=== PATIENT | female | born 1965 | race Caucasian/White ===

== ENCOUNTER 2018-07-15 18:55 | Emergency (ER) | payer BC ==
--- NOTE | 2018-07-15 20:09 | RAD ---
PA AND LATERAL CHEST: HISTORY: Cough. Wheezing. FINDINGS: Heart size and mediastinum are within normal limits. Lungs are clear of infiltrates. There are some arthritic changes of the spine. IMPRESSION: No active intrathoracic disease. POS: [facility]
== END 2018-07-15 20:49 | disposition home or self-care (01) ==
LOC: SCSER 18:55
DX: J45.909 Unspecified asthma, uncomplicated (principal); Z71.6 Tobacco abuse counseling; F32.9 Major depressive disorder, single episode, unspecified; F17.210 Nicotine dependence, cigarettes, uncomplicated; Z79.899 Other long term (current) drug therapy
CPT/HCPCS: 71046; 94640; 99406; J7620